=== PATIENT | female | born 1990 | race Caucasian/White ===

== ENCOUNTER 2017-12-13 11:09 | Emergency (ER) | payer OTHER ==
[~2017-12-13] VITALS: Ht 175.3 cm; Wt 100.5 kg
[2017-12-13 11:17] VITALS: TEMP 36.5; Ht 175.3 cm; Wt 100.5 kg
[2017-12-13] MEDS ORDERED: DEXT30TA7 PO (11:32)
[2017-12-13] MEDS ORDERED: OSEL75CA23 PO (11:32)
[2017-12-13] MEDS ORDERED: SODIUM CHLORIDE 0.9% 1000ML 1,000 ML IV SCH (12:00)
[2017-12-13 12:23] LABS: BASO % 0.6 %; BASO ABS # 0.04 K/uL (0-0.2); EOS % 0.4 %; EOS ABS # 0.03 K/uL (0-0.5); HEMATOCRIT 38.6 % (37-47); HEMOGLOBIN 12.5 g/dL (12.0-16.0); IG# 0.01 K/uL (0.00-0.02); LYMPH % 25.9 %; LYMPH ABS # 1.81 K/uL (1.2-3.4); MEAN CELL VOLUME 85.6 fL (80-100); MEAN CORPUSCULAR HEMOGLOBIN 27.7 pg (25-34); MEAN CORPUSCULAR HGB CONC 32.4 g/dl (32-36); MEAN PLATELET VOLUME 10.2 fL (7.4-10.4); MONO ABS # 0.28 K/uL (0.11-0.59); NEUT ABS # 4.83 K/uL (1.4-6.5); PLATELET COUNT 218 K/uL (130-400); RED CELL DISTRIBUTION WIDTH CV 14.1 % (11.5-14.5)
[2017-12-13] MEDS ORDERED: FAMOTIDINE IV INJ 20 MG in DEXTROSE 5% 100ML 100 ML IV STA (12:28)
[2017-12-13] MEDS ORDERED: ONDANSETRON INJ 2 MG/ML 2 ML VIAL IV STA (12:28)
[2017-12-13 12:40] LABS: ALBUMIN 3.6 gm/dl (3.4-5.0); CALCIUM 8.7 mg/dl (8.5-10.1); CREATININE 0.6 mg/dl (0.60-1.20); POTASSIUM 4.1 mmol/L (3.5-5.1)
[2017-12-13 12:43] LABS: TOTAL PROTEIN 8.1 gm/dl (6.4-8.2)
--- NOTE | 2017-12-13 13:13 | DIAGNOSTIC IMAGING REPORT ---
ABDOMINAL ULTRASOUND, RIGHT UPPER QUADRANT HISTORY: Abdominal pain. COMPARISON: None. FINDINGS: Liver is sonographically normal. There is no biliary ductal dilatation. Common bile duct measures 5 mm in caliber. There is no gallbladder wall thickening and no sonographic Johns sign was elicited. Note is made of a 5 mm gallbladder polyp. In addition, there were echogenic foci with comet tail artifact within the gallbladder fundus. This suggest adenomyomatosis. No definite gallstones were identified. The pancreas is within normal limits. There is no right hydronephrosis. IMPRESSION: 1. No definite gallstones. 5 mm gallbladder polyp and findings suggestive of adenomyomatosis within the gallbladder fundus. 2. No gallbladder wall thickening. No sonographic Johns sign. 3. No biliary ductal dilatation. Electronically signed by: Mejia Hinton M.D. 12/13/2017 1:11 PM Dictated Date/Time: 12/13/2017 1:06 PM
--- NOTE | 2017-12-13 13:22 | EMERGENCY ROOM VISIT NOTE ---
History First contact with patient: 11:24 Chief Complaint: ABDOMINAL PAIN Stated Complaint: UPPER MIDDLE & LEFT ABDOMINAL PAIN,NAUSEA,VOMITING Nursing Triage Summary: pt reports she awoke this am with upper abd pain increased in pain and became difuse. has vomited. localized to upper left side History of Present Illness The patient is a 27 year old female who presents to the Emergency Room with complaints of upper abdominal pain. Patient reports 5 days ago she had presented to [facility] with sore throat, cough, rhinorrhea, bodyache without fever . She was placed on Tamiflu x 5 days. Patient reports resolution of upper respiratory complaints. She reports 1 hr prior to arrival, she was awakened from with acute abdominal pain initially in the epigastrium and later extending to both the RUQ, LUQ. Pain is sharp, constant but worsens intermittently every few minutes, improves after vomiting, worse when lying down. She denies meal association. She has been taking Mucinex and Tamiflu only. She denies fever, chills, diarrhea, headache, urinary symptoms,vaginal discharge or bleeding. She has a history of irregular periods. She denies relevant surgical history. Source of History: patient, family History Limited By: language Review of Systems Pt denies headache, change in vision, fevers, chest pain, shortness of breath, pain with urination, and melena. Pt reports abdominal pain,nausea, vomiting, diarrhea as per HPI Past Medical/Surgical History Medical Problems: (1) GERD (gastroesophageal reflux disease) Social History Smoking Status: Never Smoker Marital Status: Current/Historical Medications Scheduled Omeprazole (Prilosec), 20 MG PO DAILY Oseltamivir Phosphate (Tamiflu), 75 MG PO BID Scheduled PRN Dextromethorphan-Guaifenesin (Mucinex Dm), 1 TAB PO Q12 PRN for CONGESTION Physical Exam Vital Signs Date Time Temp Pulse Resp B/P (MAP) Pulse Ox O2 Delivery O2 Flow Rate FiO2 12/13/17 14:44 62 18 102/60 99 12/13/17 13:56 66 20 99/64 98 Room Air 12/13/17 13:08 62 20 105/64 98 Room Air 12/13/17 11:17 36.5 71 18 115/82 98 Room Air Physical Exam GENERAL: alert, mod. distress, EYE EXAM: normal conjunctiva, PERRL and EOM's grossly intact OROPHARYNX: no exudate, no erythema, lips, buccal mucosa, and tongue normal and mucous membranes are moist NECK: supple, no nuchal rigidity, no adenopathy, non-tender LUNGS: Clear to auscultation. Normal chest wall mechanics HEART: no murmurs, S1 normal and S2 normal ABDOMEN: Tenderness in RUQ, LUQ soft, non-distended normo-active bowel sounds, no masses, no rebound or guarding. UPPER EXTREMITIES: upper extremities are grossly normal. LOWER EXTREMITIES: No pitting edema. NEURO EXAM: Normal sensorium, cranial nerves II-XII grossly intact, normal speech Medical Decision & Procedures ER Provider Diagnostic Interpretation: ABDOMINAL ULTRASOUND, RIGHT UPPER QUADRANT HISTORY: Abdominal pain. COMPARISON: None. FINDINGS: Liver is sonographically normal. There is no biliary ductal dilatation. Common bile duct measures 5 mm in caliber. There is no gallbladder wall thickening and no sonographic Johns sign was elicited. Note is made of a 5 mm gallbladder polyp. In addition, there were echogenic foci with comet tail artifact within the gallbladder fundus. This suggest adenomyomatosis. No definite gallstones were identified. The pancreas is within normal limits. There is no right hydronephrosis. IMPRESSION: 1. No definite gallstones. 5 mm gallbladder polyp and findings suggestive of adenomyomatosis within the gallbladder fundus. 2. No gallbladder wall thickening. No sonographic Johns sign. 3. No biliary ductal dilatation. Laboratory Results 12/13/17 12:11 Red Blood Count 4.51, Mean Corpuscular Volume 85.6, Mean Corpuscular Hemoglobin 27.7, Mean Corpuscular Hemoglobin Concent 32.4, Mean Platelet Volume 10.2, Neutrophils (%) (Auto) 69.0, Lymphocytes (%) (Auto) 25.9, Monocytes (%) (Auto) 4.0, Eosinophils (%) (Auto) 0.4, Basophils (%) (Auto) 0.6, Neutrophils # (Auto) 4.83, Lymphocytes # (Auto) 1.81, Monocytes # (Auto) 0.28, Eosinophils # (Auto) 0.03, Basophils # (Auto) 0.04 12/13/17 12:11 Test 12/13/17 12:05 12/13/17 12:11 Urine Color YELLOW Urine Appearance CLEAR (CLEAR) Urine pH 5.0 (4.5-7.5) Urine Specific [place] 1.027 (1.000-1.030) Urine Protein NEG (NEG) Urine Glucose (UA) NEG (NEG) Urine Ketones NEG (NEG) Urine Occult Blood NEG (NEG) Urine Nitrite NEG (NEG) Urine Bilirubin NEG (NEG) Urine Urobilinogen NEG (NEG) Urine Leukocyte Esterase NEG (NEG) Urine WBC (Auto) 1-5 /hpf (0-5) Urine RBC (Auto) 0-4 /hpf (0-4) Urine Hyaline Casts (Auto) 1-5 /lpf (0-5) Urine Epithelial Cells (Auto) >30 /lpf (0-5) Urine Bacteria (Auto) NEG (NEG) Urine Test NEG (NEG) White Blood Count 7.00 K/uL (4.8-10.8) Red Blood Count 4.51 M/uL (4.2-5.4) Hemoglobin 12.5 g/dL (12.0-16.0) Hematocrit 38.6 % (37-47) Mean Corpuscular Volume 85.6 fL (80-100) Mean Corpuscular Hemoglobin 27.7 pg (25-34) Mean Corpuscular Hemoglobin Concent 32.4 g/dl (32-36) Platelet Count 218 K/uL (130-400) Mean Platelet Volume 10.2 fL (7.4-10.4) Neutrophils (%) (Auto) 69.0 % Lymphocytes (%) (Auto) 25.9 % Monocytes (%) (Auto) 4.0 % Eosinophils (%) (Auto) 0.4 % Basophils (%) (Auto) 0.6 % Neutrophils # (Auto) 4.83 K/uL (1.4-6.5) Lymphocytes # (Auto) 1.81 K/uL (1.2-3.4) Monocytes # (Auto) 0.28 K/uL (0.11-0.59) Eosinophils # (Auto) 0.03 K/uL (0-0.5) Basophils # (Auto) 0.04 K/uL (0-0.2) RDW Standard Deviation 44.0 fL (36.4-46.3) RDW Coefficient of Variation 14.1 % (11.5-14.5) Immature Granulocyte % (Auto) 0.1 % Immature Granulocyte # (Auto) 0.01 K/uL (0.00-0.02) Anion Gap 4.0 mmol/L (3-11) Est Creatinine Clear Calc Drug Dose 177.7 ml/min Estimated GFR () 144.8 Estimated GFR (Non- 124.9 BUN/Creatinine Ratio 23.4 (10-20) Calcium Level 8.7 mg/dl (8.5-10.1) Total Bilirubin 0.5 mg/dl (0.2-1) Aspartate Amino Transf (AST/SGOT) 13 U/L (15-37) Alanine Aminotransferase (ALT/SGPT) 26 U/L (12-78) Alkaline Phosphatase 55 U/L (45-117) Total Protein 8.1 gm/dl (6.4-8.2) Albumin 3.6 gm/dl (3.4-5.0) Globulin 4.5 gm/dl (2.5-4.0) Albumin/Globulin Ratio 0.8 (0.9-2) Lipase 181 U/L (73-393) Laboratory results per my review. Medications Administered Medications (Trade) Dose Ordered Sig/Alexandre Route Start Time Stop Time Status Last Admin Dose Admin Sodium Chloride 1,000 ml @ 999 mls/hr Q1H1M IV 12/13/17 12:00 12/13/17 15:12 DC 12/13/17 12:00 999 MLS/HR Ondansetron HCl (Zofran Inj) 4 mg NOW STAT IV 12/13/17 12:28 12/13/17 12:31 DC 12/13/17 13:06 4 MG Famotidine 20 mg/ Dextrose 102 ml @ 200 mls/hr Q12H STAT IV 12/13/17 12:28 12/13/17 13:44 DC 12/13/17 13:06 200 MLS/HR Procedure ABDOMINAL ULTRASOUND, RIGHT UPPER QUADRANT HISTORY: Abdominal pain. COMPARISON: None. FINDINGS: Liver is sonographically normal. There is no biliary ductal dilatation. Common bile duct measures 5 mm in caliber. There is no gallbladder wall thickening and no sonographic Johns sign was elicited. Note is made of a 5 mm gallbladder polyp. In addition, there were echogenic foci with comet tail artifact within the gallbladder fundus. This suggest adenomyomatosis. No definite gallstones were identified. The pancreas is within normal limits. There is no right hydronephrosis. IMPRESSION: 1. No definite gallstones. 5 mm gallbladder polyp and findings suggestive of adenomyomatosis within the gallbladder fundus. 2. No gallbladder wall thickening. No sonographic Johns sign. 3. No biliary ductal dilatation. Medical Decision 27 yo F with recent history of flu-like symptoms now improved s/p Tamiflu treatment presenting with intermittent upper abdominal pain , arriving afebrile, RUQ, LUQ tenderness without leukocytosis CBC: unremarkable UA: unremarkable Lipase: negative Urine Test:negative RUQ US: 5mm gall bladder polyp, findings suggestive of adenomyomatosis Given: 1 L NS bolus, IV Famotidine 12 mg, IV Zofran 4 mg Upper Abdominal pain may be secondary to reflux gastritis vs symptomatic gall bladder polyp based on ultrasound finding. Following Famotidine, Zofran, upon reevaluation, the patient is feeling well after IV Famotidine administration which may support reflux diagnosis. I discussed the findings and the treatment plan with the patient. She expresses agreement and understanding. She is being discharged with prescription for Prilosec in addition to current Zantac regimen. She will have recommended follow up within 1-2 wks. A General Surgery referral was made regarding Gallbladder polyp in case symptoms do not resolve. Head Trauma GCS Score: 15 Impression Primary Impression: Upper abdominal pain Additional Impressions: Nausea & vomiting Gall bladder polyp Gastritis Departure Information Dispostion Home / Self-Care Condition GOOD Prescriptions Omeprazole (PRILOSEC) 20 Mg Capcr 20 MG PO DAILY for 30 Days, #30 CAP Prov: Dayne Medrano MD 12/13/17 Referrals No Doctor, Assigned (PCP) Patient Instructions ED Gastritis, My [facility] Additional Instructions You arrived with abdominal pain. You symptoms improved with Pepcid which can indicate reflux gastritis. You were also found to have a 5mm Gall bladder polyp on ultra sound. This may also be a contributor to your abdominal pain. A prescription for Prilosec has been placed which can be used in conjunction with Zantac which can help further with Reflux Gastritis. Please follow up with [facility] within 1-2 wks. A surgery referral has been made for you regarding the gall bladder polyp if symptoms continue. If you feel worsening abdominal pain fever,s chills, nausea/vomiting, or you feel concerned , return to Emergency Department or contact your clinic. Please get a repeat Right Upper Quadrant Ultrasound in 6-12 mos to assess for changes in gall bladder findings Resident Tracking Resident Involvement: Resident Care Provided Care Provided: Adult ED Problem Qualifiers
--- NOTE | 2017-12-13 13:40 | EMERGENCY ROOM VISIT NOTE ---
History Report prepared by Victor Manuelibmanuel: Kareen Davis Under the Supervision of: Dr. Timothy Jiménez M.D. First contact with patient: 11:24 Chief Complaint: ABDOMINAL PAIN Stated Complaint: UPPER MIDDLE & LEFT ABDOMINAL PAIN,NAUSEA,VOMITING Nursing Triage Summary: pt reports she awoke this am with upper abd pain increased in pain and became difuse. has vomited. localized to upper left side History of Present Illness The patient is a 27 year old female who presents to the Emergency Room with complaints of persistent left sided abdominal pain since waking earlier this morning. She rates her discomfort as a 7/10 in severity. The pain started in her epigastrium, then radiated into her LUQ. The patient reports she was also nauseous and vomited this morning. She has never undergone abdominal surgery. She notes about 5 days ago she was treated at [facility] for a sore throat, cough, rhinorrhea and body aches. Her symptoms have since resolved and she denies any recent fevers or chills. She denies any headache, diarrhea, urinary symptoms or abnormal vaginal discharge or bleeding. Her only chronic medical issue is GERD. Source of History: patient Onset: earlier this morning Position: abdomen (LUQ) Symptom Intensity: 7/10 Timing: other (persistent) Associated Symptoms: + nausea, + vomiting, No fevers, No chills, No headache , No diarrhea, No urinary symptoms Review of Systems See HPI for pertinent positives and negatives. A total of ten systems were reviewed and were otherwise negative. Past Medical & Surgical Medical Problems: (1) GERD (gastroesophageal reflux disease) Family History Cancer Social History Smoking Status: Never Smoker Alcohol Use: occasionally Drug Use: none Marital Status: Housing Status: lives with family Occupation Status: employed Current/Historical Medications Scheduled Omeprazole (Prilosec), 20 MG PO DAILY Oseltamivir Phosphate (Tamiflu), 75 MG PO BID Scheduled PRN Dextromethorphan-Guaifenesin (Mucinex Dm), 1 TAB PO Q12 PRN for CONGESTION Allergies Coded Allergies: No Known Allergies (Unverified , 12/13/17) Physical Exam Vital Signs Date Time Temp Pulse Resp B/P (MAP) Pulse Ox O2 Delivery O2 Flow Rate FiO2 12/13/17 14:44 62 18 102/60 99 12/13/17 13:56 66 20 99/64 98 Room Air 2/3/18 13:08 62 20 105/64 98 Room Air 12/13/17 11:17 36.5 71 18 115/82 98 Room Air Physical Exam GENERAL: Awake, alert, uncomfortable-appearing, in no distress HENT: Normocephalic, atraumatic. Oropharynx unremarkable. EYES: Normal conjunctiva. Sclera non-icteric. NECK: Supple. No nuchal rigidity. FROM. No JVD. RESPIRATORY: Clear to auscultation. CARDIAC: Regular rate, normal rhythm. Extremities warm and well perfused. Pulses equal. ABDOMEN: Soft, non-distended. Mild RUQ epigastric tenderness to palpation. No peritoneal signs. No rebound or guarding. No masses. RECTAL: Deferred. MUSCULOSKELETAL: Chest examination reveals no tenderness. The back is symmetrical on inspection without obvious abnormality. There is no CVA tenderness to palpation. No joint edema. LOWER EXTREMITIES: Calves are equal size bilaterally and non-tender. No edema. No discoloration. NEURO: Normal sensorium. No sensory or motor deficits noted. SKIN: No rash or jaundice noted. Medical Decision & Procedures ER Provider Diagnostic Interpretation: Radiology results as stated below per my review and radiologist interpretation: ABDOMINAL ULTRASOUND, RIGHT UPPER QUADRANT HISTORY: Abdominal pain. COMPARISON: None. FINDINGS: Liver is sonographically normal. There is no biliary ductal dilatation. Common bile duct measures 5 mm in caliber. There is no gallbladder wall thickening and no sonographic Johns sign was elicited. Note is made of a 5 mm gallbladder polyp. In addition, there were echogenic foci with comet tail artifact within the gallbladder fundus. This suggest adenomyomatosis. No definite gallstones were identified. The pancreas is within normal limits. There is no right hydronephrosis. IMPRESSION: 1. No definite gallstones. 5 mm gallbladder polyp and findings suggestive of adenomyomatosis within the gallbladder fundus. 2. No gallbladder wall thickening. No sonographic Johns sign. 3. No biliary ductal dilatation. Electronically signed by: Mejia Hinton M.D. 12/13/2017 1:11 PM Laboratory Results 12/13/17 12:11 Red Blood Count 4.51, Mean Corpuscular Volume 85.6, Mean Corpuscular Hemoglobin 27.7, Mean Corpuscular Hemoglobin Concent 32.4, Mean Platelet Volume 10.2, Neutrophils (%) (Auto) 69.0, Lymphocytes (%) (Auto) 25.9, Monocytes (%) (Auto) 4.0, Eosinophils (%) (Auto) 0.4, Basophils (%) (Auto) 0.6, Neutrophils # (Auto) 4.83, Lymphocytes # (Auto) 1.81, Monocytes # (Auto) 0.28, Eosinophils # (Auto) 0.03, Basophils # (Auto) 0.04 12/13/17 12:11 Test 12/13/17 12:05 12/13/17 12:11 Urine Color YELLOW Urine Appearance CLEAR (CLEAR) Urine pH 5.0 (4.5-7.5) Urine Specific [place] 1.027 (1.000-1.030) Urine Protein NEG (NEG) Urine Glucose (UA) NEG (NEG) Urine Ketones NEG (NEG) Urine Occult Blood NEG (NEG) Urine Nitrite NEG (NEG) Urine Bilirubin NEG (NEG) Urine Urobilinogen NEG (NEG) Urine Leukocyte Esterase NEG (NEG) Urine WBC (Auto) 1-5 /hpf (0-5) Urine RBC (Auto) 0-4 /hpf (0-4) Urine Hyaline Casts (Auto) 1-5 /lpf (0-5) Urine Epithelial Cells (Auto) >30 /lpf (0-5) Urine Bacteria (Auto) NEG (NEG) Urine Test NEG (NEG) White Blood Count 7.00 K/uL (4.8-10.8) Red Blood Count 4.51 M/uL (4.2-5.4) Hemoglobin 12.5 g/dL (12.0-16.0) Hematocrit 38.6 % (37-47) Mean Corpuscular Volume 85.6 fL (80-100) Mean Corpuscular Hemoglobin 27.7 pg (25-34) Mean Corpuscular Hemoglobin Concent 32.4 g/dl (32-36) Platelet Count 218 K/uL (130-400) Mean Platelet Volume 10.2 fL (7.4-10.4) Neutrophils (%) (Auto) 69.0 % Lymphocytes (%) (Auto) 25.9 % Monocytes (%) (Auto) 4.0 % Eosinophils (%) (Auto) 0.4 % Basophils (%) (Auto) 0.6 % Neutrophils # (Auto) 4.83 K/uL (1.4-6.5) Lymphocytes # (Auto) 1.81 K/uL (1.2-3.4) Monocytes # (Auto) 0.28 K/uL (0.11-0.59) Eosinophils # (Auto) 0.03 K/uL (0-0.5) Basophils # (Auto) 0.04 K/uL (0-0.2) RDW Standard Deviation 44.0 fL (36.4-46.3) RDW Coefficient of Variation 14.1 % (11.5-14.5) Immature Granulocyte % (Auto) 0.1 % Immature Granulocyte # (Auto) 0.01 K/uL (0.00-0.02) Anion Gap 4.0 mmol/L (3-11) Est Creatinine Clear Calc Drug Dose 177.7 ml/min Estimated GFR () 144.8 Estimated GFR (Non- 124.9 BUN/Creatinine Ratio 23.4 (10-20) Calcium Level 8.7 mg/dl (8.5-10.1) Total Bilirubin 0.5 mg/dl (0.2-1) Aspartate Amino Transf (AST/SGOT) 13 U/L (15-37) Alanine Aminotransferase (ALT/SGPT) 26 U/L (12-78) Alkaline Phosphatase 55 U/L (45-117) Total Protein 8.1 gm/dl (6.4-8.2) Albumin 3.6 gm/dl (3.4-5.0) Globulin 4.5 gm/dl (2.5-4.0) Albumin/Globulin Ratio 0.8 (0.9-2) Lipase 181 U/L (73-393) Laboratory results reviewed by me Medications Administered Medications (Trade) Dose Ordered Sig/Alexandre Route Start Time Stop Time Status Last Admin Dose Admin Sodium Chloride 1,000 ml @ 999 mls/hr Q1H1M IV 12/13/17 12:00 12/13/17 15:12 DC 12/13/17 12:00 999 MLS/HR Ondansetron HCl (Zofran Inj) 4 mg NOW STAT IV 12/13/17 12:28 12/13/17 12:31 DC 12/13/17 13:06 4 MG Famotidine 20 mg/ Dextrose 102 ml @ 200 mls/hr Q12H STAT IV 12/13/17 12:28 12/13/17 13:44 DC 12/13/17 13:06 200 MLS/HR ED Course 1337: The patient was evaluated in room A10. A complete history and physical exam was performed. 1430: I reevaluated the patient. She is feeling better and resting comfortably. I discussed her results and discharge instructions and she verbalized complete understanding and agreement. Medical Decision I reviewed the patient's past medical history, medications, and the nursing notes as described above. The patient's presentation and history were concerning for appendicitis, diverticulitis, PUD, biliary pathology, UTI, pancreatitis, obstruction, mesenteric ischemia, aortic pathology, infections, inflammatory bowel disease, renal colic, as well as others were entertained. The patient is a 27-year-old woman who presents emergency Department with upper abdominal pain, nausea and vomiting which began today in the setting of being treated empirically last week for influenza without confirmatory testing history of present illness. On arrival,the patient is uncomfortable but no acute distress, afebrile stable vital signs. Has mild right upper quadrant and epigastric tenderness but no peritoneal signs. Labs unremarkable including WBC within normal limits. Upper quadrant ultrasound demonstrates likely 5 mm polyp suggestive of adenomyomatosis. She was given IV fluids, Zofran, Pepcid resolution of the patient's symptoms resolved. Unclear if the patient's episode of pain is related to symptomatic effect of her gallbladder polyp versus possible reflux/gastritis. Thus we will add PPI to the patient's current daily Zantac but will also provide surgery referral for patient's gallbladder polyp if patient's symptoms persist. Otherwise patient was instructed that she should have repeat imaging of her gallbladder to evaluate for any changes and she will f/u with [facility] to monitor for improvement in her symptoms. Findings and plan for follow-up reviewed with patient. Patient agreeable and d/c'd per discharge instructions. I discussed the case with the resident physician, examined the patient, and agree with the findings and plan as documented in the residents note unless otherwise clarified here by me. Medication Reconcilliation Current Medication List: was personally reviewed by me Blood Pressure Screening Patient's blood pressure: Normal blood pressure Blood pressure disposition: Did not require urgent referral Impression Primary Impression: Upper abdominal pain Additional Impressions: Nausea & vomiting Gastritis Gallbladder polyp Scribe Attestation The scribe's documentation has been prepared under my direction and personally reviewed by me in its entirety. I confirm that the note above accurately reflects all work, treatment, procedures, and medical decision making performed by me. Departure Information Dispostion Home / Self-Care Prescriptions Omeprazole (PRILOSEC) 20 Mg Capcr 20 MG PO DAILY for 30 Days, #30 CAP Prov: Dayne Medrano MD 12/13/17 Referrals No Doctor, Assigned (PCP) Patient Instructions ED Gastritis, My [facility] Additional Instructions You arrived with abdominal pain. You symptoms improved with Pepcid which can indicate reflux gastritis. You were also found to have a 5mm Gall bladder polyp on ultra sound. This may also be a contributor to your abdominal pain. A prescription for Prilosec has been placed which can be used in conjunction with Zantac which can help further with Reflux Gastritis. Please follow up with [facility] within 1-2 wks. A surgery referral has been made for you regarding the gall bladder polyp if symptoms continue. If you feel worsening abdominal pain fever,s chills, nausea/vomiting, or you feel concerned , return to Emergency Department or contact your clinic. Please get a repeat Right Upper Quadrant Ultrasound in 6-12 mos to assess for changes in gall bladder findings Problem Qualifiers
[2017-12-13] MEDS ORDERED: PRLSR20 PO (13:51)
[2017-12-13 14:44] VITALS: BP 102/60; PULSE 62; O2SAT 99
== END 2017-12-13 14:58 | disposition home or self-care (01) ==
LOC: C.EDB 11:13 → C.EDA 14:58
DX: K29.70 Gastritis, unspecified, without bleeding (principal); K82.4 Cholesterolosis of gallbladder; K21.9 Gastro-esophageal reflux disease without esophagitis; Z79.899 Other long term (current) drug therapy; Z80.9 Family history of malignant neoplasm, unspecified